=== PATIENT | male | born 1955 | race Caucasian/White ===

== ENCOUNTER 2016-03-06 20:40 | Emergency (ER) | payer OTHER, MEDICARE ==
[~2016-03-06] VITALS: Ht 157.5 cm; Wt 150.5 kg
[~2016-03-06 20:40] MED LIST: ALBUTEROL0.83 MG/ML IH; AMBIEN 10MG10 MG PO; BLOOD PRESSURE PILL; BROVANA15 MCG/2 M IH; BUMEX 1MG TA1 MG/TA1 PO; CALCIUM W/VITAM1 TAB PO; CARDI-OMEGA1000 MG PO; CELEBREX 200MG200 MG PO; CEPHALEXIN500 M1 PO; CLEOCIN HCL300 MG PO; COLACE 100100 MG/CAP PO; COMBIRESP IH; COMBIVENT INH14.7 GM IH; DESYREL 50MG50 MG PO; DOXYCYCLINE 10100 MG PO; DULCOLAX TAB5 MG PO; HYZAAR 25 MG-101 TAB PO; HYZAAR 50-12.1 UDTAB PO; INCRUSE EL62.5 MCG/A IH; IPRATROPIUM BROM3 M1 IH; K-TAB20 PO; KLOR-CON 1010 MEQ PO; KLOR-CON M2020 MEQ PO; KLOR-CON20 MEQ PO; LASIX 40MG TABL40 MG PO; LEVAQUIN 750MG750 M1 PO; LEVOXYL0.05 MG PO; LEVOXYL0.075 MG PO; LIPITOR 40MG TA40 MG PO; LUNESTA3 MG PO; METALAZONE PO; MILK OF MA400 MG/52 PO; MUCUS RELIEF200 MG PO; NITROSTAT0.4 MG/TAB SL; NORCO 325 MG-51 TAB PO; PERCOCET 325 MG1 TA2 PO; PLAVIX 75MG TAB75 MG PO; PREDNISONE10 MG PO; PREDNISONE20 MG PO; PULMICORT0.25 MG/2 IH; PULMICORT0.5 MG/2 M IH; ROXICODONE 55 MG/TAB PO; RT ALBUTER2.5 MG/0.5 IH; RT SPIRIVA18 MCG IH; STOOL SOFTENER100 M2 PO; SYNTHROID0.05 MG/TA PO; SYNTHROID0.075 MG/T PO; TENORMIN 2525 MG/TAB PO; TENORMIN 5050 MG/TAB PO; THEO-24 20200 MG/CAP PO; TOPROL XL 25MG25 MG PO; ULTRAM 50MG TAB50 MG PO; ZAROXOLYN5 MG PO; ZITHROMAX500 M2 PO; ZOCOR 40MG40 MG PO; ZOLOFT 50MG50 MG PO; ZYLOPRIM 100MG100 MG PO; ZYLOPRIM 300MG300 MG PO
[2016-03-06 20:41] VITALS: TEMP 98.4
[2016-03-06 21:57] LABS: BASO % 0.6 % (0.0-2.0); EOS # 0.4 (0.0-0.7); EOS % 5.4 % (0-4.0); GRAN # 4.9 (1.4-6.5); GRAN % 67.6 % (42.2-75.2); HEMATOCRIT 37.4 % (42.0-52.0); LYMPH # 1.4 (1.2-3.4); LYMPH % 18.7 % (20.0-51.0); MEAN CELL VOLUME 88 fl (80.0-100.0); MEAN CORPUSCULAR HEMOGLOBIN 28 pg (27.0-31.0); MEAN CORPUSCULAR HGB CONC 31 g/dl (33.0-37.0); MEAN PLATELET VOLUME 9.8 fl (7.4-10.4); MONO # 0.5 (0.1-0.6); MONO % 7.1 % (1.7-9.3); PLATELET COUNT 222 K/mm3 (130-400); RED BLOOD COUNT 4.23 M/mm3 (4.20-5.60); REDCELL DISTRIBUTION WIDTH-CV 14.7 % (11.5-14.5); WHITE BLOOD COUNT 7.2 K/mm3 (4.8-10.8)
[2016-03-06 21:59] LABS: HEMOGLOBIN 11.7 g/dl (13.5-18.0)
[2016-03-06 22:09] LABS: ADJUSTED CALCIUM 9.2 mg/dL (8.4-10.2); ALANINE AMINOTRANSFERASE 68 U/L (21-72); ALBUMIN 3.7 gm/dL (3.5-5.0); ALKALINE PHOSPHATASE 126 U/L (50-136); ANION GAP 9 mmol/L (7-16); BILIRUBIN,TOTAL 0.9 mg/dL (0.0-1.0); BLOOD UREA NITROGEN 16 mg/dL (9-20); CARBON DIOXIDE 35 mmol/L (22-30); CHLORIDE 99 mmol/L (98-107); CREATININE, serum 0.76 mg/dL (0.66-1.25); GLUCOSE 97 mg/dL (74-106); POTASSIUM 4.1 mmol/L (3.4-5.0); SODIUM 143 mmol/L (137-145); TOTAL PROTEIN 7.2 gm/dL (6.4-8.2)
[2016-03-06 22:20] LABS: B-TYPE NATRIURETIC PEPTIDE 639 pg/mL (0-125)
[2016-03-06 22:25] LABS: TROPONIN-I < 0.012 ng/mL (0.000-0.034)
[2016-03-06 22:33] LABS: PROTHROMBIN TIME 11.6 SECONDS (9.7-12.8)
[2016-03-06 23:14] VITALS: BP 184/87; PULSE 74
== END 2016-03-06 23:14 | disposition home or self-care (01) ==
LOC: COL.ER 20:40
PROVIDERS: Emergency Medicine
DX: J44.9 Chronic obstructive pulmonary disease, unspecified (principal); Z99.81 Dependence on supplemental oxygen; I25.10 Atherosclerotic heart disease of native coronary artery without angina pectoris; I11.0 Hypertensive heart disease with heart failure; I50.9 Heart failure, unspecified; E11.9 Type 2 diabetes mellitus without complications; Z95.0 Presence of cardiac pacemaker; E66.01 Morbid (severe) obesity due to excess calories; Z76.0 Encounter for issue of repeat prescription; Z68.44 Body mass index [BMI] 60.0-69.9, adult; Z79.02 Long term (current) use of antithrombotics/antiplatelets
CPT/HCPCS: J1940

== ENCOUNTER 2016-04-16 00:13 | Emergency (ER) | payer OTHER, MEDICARE ==
[~2016-04-16] VITALS: Ht 160 cm; Wt 150.5 kg
[2016-04-16 00:23] VITALS: TEMP 97.6
[2016-04-16] MEDS ORDERED: KLOR-CON M2020 MEQ PO (01:00)
[2016-04-16 01:01] LABS: BASO % 0.5 % (0.0-2.0); EOS # 0.4 (0.0-0.7); GRAN # 4.9 (1.4-6.5); GRAN % 66.7 % (42.2-75.2); HEMATOCRIT 40.3 % (42.0-52.0); HEMOGLOBIN 12.4 g/dl (13.5-18.0); LYMPH # 1.4 (1.2-3.4); LYMPH % 19.2 % (20.0-51.0); MEAN CELL VOLUME 89 fl (80.0-100.0); MEAN CORPUSCULAR HEMOGLOBIN 27 pg (27.0-31.0); MEAN CORPUSCULAR HGB CONC 31 g/dl (33.0-37.0); MEAN PLATELET VOLUME 9.9 fl (7.4-10.4); MONO # 0.6 (0.1-0.6); MONO % 7.9 % (1.7-9.3); PLATELET COUNT 242 K/mm3 (130-400); RED BLOOD COUNT 4.53 M/mm3 (4.20-5.60); REDCELL DISTRIBUTION WIDTH-CV 13.5 % (11.5-14.5); WHITE BLOOD COUNT 7.4 K/mm3 (4.8-10.8)
[2016-04-16 01:09] LABS: INFLUENZA B NEGATIVE
[2016-04-16 01:12] LABS: ADJUSTED CALCIUM 9.3 mg/dL (8.4-10.2); ALANINE AMINOTRANSFERASE 49 U/L (21-72); ALBUMIN 3.9 gm/dL (3.5-5.0); ALKALINE PHOSPHATASE 123 U/L (50-136); ANION GAP 12 mmol/L (7-16); BILIRUBIN,TOTAL 0.6 mg/dL (0.0-1.0); BLOOD UREA NITROGEN 27 mg/dL (9-20); CALCIUM 9.2 mg/dL (8.4-10.2); CARBON DIOXIDE 34 mmol/L (22-30); CHLORIDE 98 mmol/L (98-107); CREATININE, serum 0.99 mg/dL (0.66-1.25); GLUCOSE 108 mg/dL (74-106); MAGNESIUM 1.7 mg/dL (1.6-2.3); POTASSIUM 3.6 mmol/L (3.4-5.0); SODIUM 144 mmol/L (137-145); TOTAL PROTEIN 7.7 gm/dL (6.4-8.2)
[2016-04-16 01:23] LABS: B-TYPE NATRIURETIC PEPTIDE 145 pg/mL (0-125)
[2016-04-16 01:24] LABS: TROPONIN-I < 0.012 ng/mL (0.000-0.034)
[2016-04-16 01:48] LABS: THEOPHYLLINE < 1.0 ug/mL (10.0-20.0)
[2016-04-16] MEDS ORDERED: PREDNISONE20 MG PO (02:36)
[2016-04-16 02:44] VITALS: BP 154/85; PULSE 86
[2016-04-17] MEDS ORDERED: SYNTHROID0.075 MG/T PO (05:32)
[2016-04-17] MEDS ORDERED: TOPROL XL 25MG25 MG PO (05:34)
[2016-04-17] MEDS ORDERED: PREDNISONE20 MG PO (09:15)
[2016-04-17] MEDS ORDERED: INCRUSE EL62.5 MCG/A IH (09:19)
== END 2016-04-16 02:59 | disposition home or self-care (01) ==
LOC: COL.ER 00:13
PROVIDERS: Emergency Medicine
DX: J44.1 Chronic obstructive pulmonary disease with (acute) exacerbation (principal); T50.1X6A Underdosing of loop [high-ceiling] diuretics, initial encounter; Z91.128 Patient's intentional underdosing of medication regimen for other reason; Z99.81 Dependence on supplemental oxygen; E11.9 Type 2 diabetes mellitus without complications; I50.9 Heart failure, unspecified; I25.10 Atherosclerotic heart disease of native coronary artery without angina pectoris; Z79.02 Long term (current) use of antithrombotics/antiplatelets
CPT/HCPCS: J2930; J7512

== ENCOUNTER 2016-04-17 04:35 | Inpatient (IN) | payer OTHER, MEDICARE ==
[~2016-04-17] VITALS: Ht 160.1 cm; Wt 158.1 kg
[2016-04-17] VITALS (599 sets, daily range): BP systolic 135–157; BP diastolic 79–101; PULSE 89–117; TEMP 97.5–98.7; O2SAT 70–100
[2016-04-17 04:50] LABS: ARTERIAL BLD GAS O2 SATURATION 93.6 % (92-100); ARTERIAL BLD GAS TCO2 CT 40.1; ARTERIAL BLOOD GAS HCO3 36.8 meq/L (22-26); ARTERIAL BLOOD GAS PO2 90.7 mmHg (80-100); ARTERIAL BLOOD GAS PO2T 90.7 (80-100); OXYHEMOGLOBIN 92.8 %
[2016-04-17 04:51] LABS: ALLEN TEST YES; ALLENS TEST RESULT PASS; ARTERIAL BLOOD GAS PHT 7.16 C (7.35-7.45); ARTERIAL BLOOD GAS pH 7.16 (7.35-7.45); ATS? YES
[2016-04-17 05:04] LABS: BASO % 0.2 % (0.0-2.0); EOS % 0.1 % (0-4.0); GRAN # 10.6 (1.4-6.5); GRAN % 82.4 % (42.2-75.2); HEMATOCRIT 42.2 % (42.0-52.0); LYMPH # 1.2 (1.2-3.4); LYMPH % 9.2 % (20.0-51.0); MEAN CELL VOLUME 89 fl (80.0-100.0); MEAN CORPUSCULAR HEMOGLOBIN 27 pg (27.0-31.0); MEAN CORPUSCULAR HGB CONC 31 g/dl (33.0-37.0); MEAN PLATELET VOLUME 9.7 fl (7.4-10.4); MONO % 7.5 % (1.7-9.3); PLATELET COUNT 267 K/mm3 (130-400); RED BLOOD COUNT 4.75 M/mm3 (4.20-5.60); REDCELL DISTRIBUTION WIDTH-CV 13.6 % (11.5-14.5); WHITE BLOOD COUNT 12.9 K/mm3 (4.8-10.8)
[2016-04-17 05:07] LABS: INR 1.1 (0.8-3.0); PROTHROMBIN TIME 11.9 SECONDS (9.7-12.8)
[2016-04-17 05:14] LABS: ADJUSTED CALCIUM 8.9 mg/dL (8.4-10.2); BILIRUBIN,TOTAL 0.6 mg/dL (0.0-1.0); CALCIUM 8.9 mg/dL (8.4-10.2); CREATININE, serum 0.75 mg/dL (0.66-1.25); POTASSIUM 3.8 mmol/L (3.4-5.0); TOTAL PROTEIN 7.8 gm/dL (6.4-8.2)
[2016-04-17 05:27] LABS: TROPONIN-I 0.063 ng/mL (0.000-0.034)
[2016-04-17] MEDS ORDERED: SYNTHROID0.075 MG/T PO (05:32)
[2016-04-17] MEDS ORDERED: TOPROL XL 25MG25 MG PO (05:34)
[2016-04-17 05:36] LABS: ARTERIAL BLD GAS O2 SATURATION 96.9 % (92-100); ARTERIAL BLD GAS TCO2 CT 38.6; ARTERIAL BLOOD GAS BASE EXCESS 6.2 (-2-2); ARTERIAL BLOOD GAS HCO3 36.1 meq/L (22-26); ARTERIAL BLOOD GAS pH 7.24 (7.35-7.45)
[2016-04-17 05:38] LABS: ALLEN TEST YES; ALLENS TEST RESULT PASS; ATS? YES
[2016-04-17] MEDS ORDERED: PREDNISONE20 MG PO (09:15)
[2016-04-17] MEDS ORDERED: INCRUSE EL62.5 MCG/A IH (09:19)
[2016-04-17 14:56] LABS: ARTERIAL BLD GAS O2 SATURATION 92.4 % (92-100); ARTERIAL BLD GAS TCO2 CT 39.4; ARTERIAL BLOOD GAS BASE EXCESS 8.6 (-2-2); ARTERIAL BLOOD GAS HCO3 37.2 meq/L (22-26); ARTERIAL BLOOD GAS PHT 7.34 C (7.35-7.45); ARTERIAL BLOOD GAS PO2 65.7 mmHg (80-100); ARTERIAL BLOOD GAS PO2T 65.7 (80-100); ARTERIAL BLOOD GAS pH 7.34 (7.35-7.45); OXYHEMOGLOBIN 91.6 %
[2016-04-17 14:57] LABS: ALLEN TEST NO; ATS? YES
[2016-04-18] VITALS (601 sets, daily range): BP systolic 114–152; BP diastolic 32–81; PULSE 64–83; TEMP 97.1–98.8; O2SAT 88–100
[2016-04-18 05:16] LABS: ARTERIAL BLD GAS O2 SATURATION 93.1 % (92-100); ARTERIAL BLD GAS TCO2 CT 38.4; ARTERIAL BLOOD GAS HCO3 36.3 meq/L (22-26); ARTERIAL BLOOD GAS PHT 7.34 C (7.35-7.45); ARTERIAL BLOOD GAS PO2 70.3 mmHg (80-100); ARTERIAL BLOOD GAS PO2T 70.3 (80-100); ARTERIAL BLOOD GAS pH 7.34 (7.35-7.45); OXYHEMOGLOBIN 92.5 %
[2016-04-18 05:19] LABS: ALLEN TEST NO; ATS? YES
[2016-04-18 06:07] LABS: HEMOGLOBIN 12.4 g/dl (13.5-18.0); MEAN CELL VOLUME 89 fl (80.0-100.0); MEAN CORPUSCULAR HEMOGLOBIN 28 pg (27.0-31.0); MEAN CORPUSCULAR HGB CONC 31 g/dl (33.0-37.0); MEAN PLATELET VOLUME 9.7 fl (7.4-10.4); PLATELET COUNT 249 K/mm3 (130-400); RED BLOOD COUNT 4.49 M/mm3 (4.20-5.60); REDCELL DISTRIBUTION WIDTH-CV 13.4 % (11.5-14.5); WHITE BLOOD COUNT 10.6 K/mm3 (4.8-10.8)
[2016-04-18 06:13] LABS: ADD PATHOLOGY DIFF REVIEW NO
[2016-04-18 06:16] LABS: ADJUSTED CALCIUM 9.2 mg/dL (8.4-10.2); ALBUMIN 3.7 gm/dL (3.5-5.0); BILIRUBIN,TOTAL 0.4 mg/dL (0.0-1.0); CREATININE, serum 0.71 mg/dL (0.66-1.25); POTASSIUM 4.4 mmol/L (3.4-5.0); TOTAL PROTEIN 7.3 gm/dL (6.4-8.2)
[2016-04-18 07:07] LABS: BAND 6 % (0-10); NEUTROPHILS 84 % (42.0-75.2); PLATELET ESTIMATE NORMAL (NORMAL); TOTAL CELLS COUNTED 100
[2016-04-19] VITALS (12 sets, daily range): BP systolic 114–184; BP diastolic 61–86; PULSE 74–133; TEMP 97.3–98
[2016-04-19 05:31] LABS: ARTERIAL BLD GAS O2 SATURATION 95.5 % (92-100); ARTERIAL BLD GAS TCO2 CT 38.2; ARTERIAL BLOOD GAS BASE EXCESS 9.2 (-2-2); ARTERIAL BLOOD GAS HCO3 36.3 meq/L (22-26); ARTERIAL BLOOD GAS PHT 7.39 C (7.35-7.45); ARTERIAL BLOOD GAS PO2 80.6 mmHg (80-100); ARTERIAL BLOOD GAS PO2T 80.6 (80-100); ARTERIAL BLOOD GAS pH 7.39 (7.35-7.45); OXYHEMOGLOBIN 94.8 %
[2016-04-19 05:32] LABS: ALLEN TEST YES; ALLENS TEST RESULT PASS; ATS? YES
[2016-04-19 07:50] LABS: BASO % 0.2 % (0.0-2.0); GRAN # 10.5 (1.4-6.5); GRAN % 82.3 % (42.2-75.2); HEMATOCRIT 38.3 % (42.0-52.0); LYMPH # 1.5 (1.2-3.4); LYMPH % 11.5 % (20.0-51.0); MEAN CELL VOLUME 88 fl (80.0-100.0); MEAN CORPUSCULAR HEMOGLOBIN 28 pg (27.0-31.0); MEAN CORPUSCULAR HGB CONC 31 g/dl (33.0-37.0); MONO # 0.7 (0.1-0.6); MONO % 5.4 % (1.7-9.3); PLATELET COUNT 289 K/mm3 (130-400); RED BLOOD COUNT 4.37 M/mm3 (4.20-5.60); REDCELL DISTRIBUTION WIDTH-CV 13.4 % (11.5-14.5); WHITE BLOOD COUNT 12.8 K/mm3 (4.8-10.8)
[2016-04-19 07:59] LABS: ALBUMIN 3.5 gm/dL (3.5-5.0)
[2016-04-19 08:23] LABS: BILIRUBIN,DIRECT 0.4 mg/dL (0.0-0.4); BILIRUBIN,TOTAL 0.5 mg/dL (0.0-1.0)
[2016-04-19 09:16] LABS: CREATININE, serum 0.86 mg/dL (0.66-1.25); MAGNESIUM 2.2 mg/dL (1.6-2.3); PHOSPHOROUS 4.3 mg/dL (2.5-4.5); POTASSIUM 3.7 mmol/L (3.4-5.0)
[2016-04-19] MEDS ORDERED: PREDNISONE20 MG PO (12:27)
[2016-04-19] MEDS ORDERED: LEVAQUIN 750MG750 M1 PO (12:28)
[2016-04-19] MEDS ORDERED: PREDNISONE10 MG PO ×2 (12:28)
== END 2016-04-19 18:03 | disposition home or self-care (01) | DRG 189 ==
LOC: COL.ER 04:35 → MEDICAL 05:45 → ICU 05:45 → MEDICAL 04-18 11:47
PROVIDERS: Emergency Medicine; Family Medicine; Internal Medicine Pulmonary Disease
DX: J96.22 Acute and chronic respiratory failure with hypercapnia (principal); I21.4 Non-ST elevation (NSTEMI) myocardial infarction; J44.1 Chronic obstructive pulmonary disease with (acute) exacerbation; I50.30 Unspecified diastolic (congestive) heart failure; Z68.44 Body mass index [BMI] 60.0-69.9, adult; E78.5 Hyperlipidemia, unspecified; Z66 Do not resuscitate; I11.0 Hypertensive heart disease with heart failure; G47.33 Obstructive sleep apnea (adult) (pediatric); E66.01 Morbid (severe) obesity due to excess calories; Z88.0 Allergy status to penicillin; Z87.891 Personal history of nicotine dependence
CPT/HCPCS: 99223-AI; 99233-AI; 99239; A9502; J1250; J1956; J2930; J7512

== ENCOUNTER 2016-05-25 09:43 | Emergency (ER) | payer OTHER, MEDICARE ==
[~2016-05-25] VITALS: Ht 157.5 cm; Wt 154.5 kg
[2016-05-25 10:23] LABS: BASO % 0.4 % (0.0-2.0); EOS # 0.2 (0.0-0.7); EOS % 2.3 % (0-4.0); GRAN # 6.4 (1.4-6.5); GRAN % 77.5 % (42.2-75.2); HEMOGLOBIN 12.8 g/dl (13.5-18.0); LYMPH # 1.2 (1.2-3.4); LYMPH % 13.8 % (20.0-51.0); MEAN CELL VOLUME 88 fl (80.0-100.0); MEAN CORPUSCULAR HEMOGLOBIN 28 pg (27.0-31.0); MEAN CORPUSCULAR HGB CONC 31 g/dl (33.0-37.0); MEAN PLATELET VOLUME 9.9 fl (7.4-10.4); MONO # 0.4 (0.1-0.6); MONO % 5.3 % (1.7-9.3); PLATELET COUNT 271 K/mm3 (130-400); RED BLOOD COUNT 4.64 M/mm3 (4.20-5.60); REDCELL DISTRIBUTION WIDTH-CV 13.7 % (11.5-14.5); WHITE BLOOD COUNT 8.3 K/mm3 (4.8-10.8)
[2016-05-25 10:25] LABS: ARTERIAL BLD GAS TCO2 CT 35.5; ARTERIAL BLOOD GAS BASE EXCESS 4.9 (-2-2); ARTERIAL BLOOD GAS HCO3 33.4 meq/L (22-26); ARTERIAL BLOOD GAS PO2 93.3 mmHg (80-100); ARTERIAL BLOOD GAS PO2T 93.3 (80-100); OXYHEMOGLOBIN 95.2 %
[2016-05-25 10:27] LABS: ATS? YES
[2016-05-25 10:28] LABS: INR 1.1 (0.8-3.0); PROTHROMBIN TIME 12.2 SECONDS (9.7-12.8)
[2016-05-25 10:31] LABS: PARTIAL THROMBOPLASTIN TIME 38.5 SECONDS (26.0-37.0)
[2016-05-25 10:34] LABS: ALANINE AMINOTRANSFERASE 33 U/L (21-72); ALBUMIN 3.6 gm/dL (3.5-5.0); ALKALINE PHOSPHATASE 141 U/L (50-136); ANION GAP 9 mmol/L (7-16); BILIRUBIN,TOTAL 0.7 mg/dL (0.0-1.0); BLOOD UREA NITROGEN 13 mg/dL (9-20); CALCIUM 9.7 mg/dL (8.4-10.2); CARBON DIOXIDE 37 mmol/L (22-30); CHLORIDE 99 mmol/L (98-107); CREATININE, serum 0.76 mg/dL (0.66-1.25); GLUCOSE 126 mg/dL (74-106); SODIUM 145 mmol/L (137-145); TOTAL PROTEIN 7.4 gm/dL (6.4-8.2)
[2016-05-25 10:45] LABS: B-TYPE NATRIURETIC PEPTIDE 210 pg/mL (0-125)
[2016-05-25 10:50] LABS: TROPONIN-I < 0.012 ng/mL (0.000-0.034)
[2016-05-25] MEDS ORDERED: K-DUR20 MEQ PO (11:24)
[2016-05-25] MEDS ORDERED: PREDNISONE20 MG PO (13:21)
[2016-05-25] MEDS ORDERED: LEVAQUIN 5500 MG/TA1 PO (13:21)
[2016-05-25 14:16] VITALS: BP 140/75; PULSE 80; TEMP 98.2
== END 2016-05-25 14:08 | disposition home or self-care (01) ==
LOC: COL.ER 09:43
PROVIDERS: Emergency Medicine
DX: J44.1 Chronic obstructive pulmonary disease with (acute) exacerbation (principal); Z91.14 Patient's other noncompliance with medication regimen; I10 Essential (primary) hypertension; G47.33 Obstructive sleep apnea (adult) (pediatric); Z95.5 Presence of coronary angioplasty implant and graft; I25.10 Atherosclerotic heart disease of native coronary artery without angina pectoris; Z87.891 Personal history of nicotine dependence; Z95.0 Presence of cardiac pacemaker; Z66 Do not resuscitate; Z88.0 Allergy status to penicillin
CPT/HCPCS: J2930

== ENCOUNTER → 2016-06-26 | Outpatient (CLI) | payer OTHER, MEDICARE ==
[~2016-06-26] MED LIST changes: +BACTROBAN 22GM22 GM TP; +K-DUR20 MEQ PO; +LEVAQUIN 5500 MG/TA1 PO; +LIPITOR 80MG80 MG PO; +THEO-24400 MG PO
== END ==
LOC: COL.PUL 09:40
DX: R06.02 Shortness of breath (principal)

== ENCOUNTER 2016-07-27 01:52 | Inpatient (IN) | payer OTHER, MEDICARE ==
[2016-07-27] VITALS (1018 sets, daily range): BP systolic 112–134; BP diastolic 52–90; PULSE 83–97; TEMP 97.3–98.3; O2SAT 84–100
[~2016-07-27] VITALS: Ht 157.5 cm; Wt 133.9 kg
[~2016-07-27 01:52] MED LIST changes: -BACTROBAN 22GM22 GM TP; -LIPITOR 80MG80 MG PO; -THEO-24400 MG PO
[2016-07-27 02:09] LABS: ARTERIAL BLD GAS O2 SATURATION 99.2 % (92-100); ARTERIAL BLD GAS TCO2 CT 36.1; ARTERIAL BLOOD GAS HCO3 33.7 meq/L (22-26); ARTERIAL BLOOD GAS PHT 7.25 C (7.35-7.45); ARTERIAL BLOOD GAS pH 7.25 (7.35-7.45); OXYHEMOGLOBIN 98.4 %
[2016-07-27 02:14] LABS: ALLEN TEST YES; ALLENS TEST RESULT PASS; ARTERIAL BLOOD GAS PO2 491.5 mmHg (80-100); ARTERIAL BLOOD GAS PO2T 491.5 (80-100); ATS? YES
[2016-07-27 02:23] LABS: BASO % 0.4 % (0.0-2.0); EOS # 0.4 (0.0-0.7); EOS % 3.8 % (0-4.0); GRAN # 7.9 (1.4-6.5); GRAN % 76.6 % (42.2-75.2); HEMATOCRIT 37.1 % (42.0-52.0); LYMPH # 1.5 (1.2-3.4); LYMPH % 14.2 % (20.0-51.0); MEAN CELL VOLUME 86 fl (80.0-100.0); MEAN CORPUSCULAR HEMOGLOBIN 27 pg (27.0-31.0); MEAN CORPUSCULAR HGB CONC 32 g/dl (33.0-37.0); MEAN PLATELET VOLUME 9.9 fl (7.4-10.4); MONO # 0.4 (0.1-0.6); MONO % 4.3 % (1.7-9.3); PLATELET COUNT 200 K/mm3 (130-400); RED BLOOD COUNT 4.32 M/mm3 (4.20-5.60); REDCELL DISTRIBUTION WIDTH-CV 14.2 % (11.5-14.5); WHITE BLOOD COUNT 10.3 K/mm3 (4.8-10.8)
[2016-07-27 02:24] LABS: HEMOGLOBIN 11.8 g/dl (13.5-18.0)
[2016-07-27 02:28] LABS: ADJUSTED CALCIUM 8.8 mg/dL (8.4-10.2); ALBUMIN 3.4 gm/dL (3.5-5.0); BILIRUBIN,TOTAL 0.5 mg/dL (0.0-1.0); CALCIUM 8.3 mg/dL (8.4-10.2); CREATININE, serum 0.82 mg/dL (0.66-1.25); POTASSIUM 4.1 mmol/L (3.4-5.0); TOTAL PROTEIN 7.2 gm/dL (6.4-8.2)
[2016-07-27 02:53] LABS: TROPONIN-I 0.021 ng/mL (0.000-0.034)
[2016-07-27] MEDS ORDERED: ZAROXOLYN5 MG PO (04:00)
[2016-07-27] MEDS ORDERED: THEO-24400 MG PO (04:01)
[2016-07-27] MEDS ORDERED: LIPITOR 80MG80 MG PO (04:05)
[2016-07-27] MEDS ORDERED: DESYREL 50MG50 MG PO (04:05)
[2016-07-27 04:49] LABS: ALLEN TEST YES; ALLENS TEST RESULT PASS; ARTERIAL BLD GAS O2 SATURATION 97.2 % (92-100); ARTERIAL BLOOD GAS BASE EXCESS 3.7 (-2-2); ARTERIAL BLOOD GAS HCO3 31.1 meq/L (22-26); ARTERIAL BLOOD GAS PO2 115.9 mmHg (80-100); ARTERIAL BLOOD GAS pH 7.32 (7.35-7.45); ATS? YES
[2016-07-27] MEDS ORDERED: BACTROBAN 22GM22 GM TP (05:01)
[2016-07-27 10:18] LABS: ARTERIAL BLD GAS O2 SATURATION 93.5 % (92-100); ARTERIAL BLD GAS TCO2 CT 30.3; ARTERIAL BLOOD GAS BASE EXCESS 2.2 (-2-2); ARTERIAL BLOOD GAS HCO3 28.7 meq/L (22-26); ARTERIAL BLOOD GAS PO2 72.1 mmHg (80-100); ARTERIAL BLOOD GAS pH 7.35 (7.35-7.45); OXYHEMOGLOBIN 92.8 %
[2016-07-27 10:19] LABS: ATS? YES
[2016-07-27 10:20] LABS: ABG VENTILATOR TIDAL VOLUME 354 mL; ALLEN TEST NO
[2016-07-28] VITALS (690 sets, daily range): BP systolic 104–150; BP diastolic 54–82; PULSE 71–90; TEMP 97.5–98.5; O2SAT 80–97
[2016-07-28 07:59] LABS: CALCIUM 8.9 mg/dL (8.4-10.2); CREATININE, serum 0.75 mg/dL (0.66-1.25); MAGNESIUM 1.7 mg/dL (1.6-2.3); POTASSIUM 3.5 mmol/L (3.4-5.0)
[2016-07-28 08:17] LABS: TROPONIN-I 0.118 ng/mL (0.000-0.034)
[2016-07-29 05:50] VITALS: BP 128/65; PULSE 59; TEMP 97.3
[2016-07-29 08:36] VITALS: BP 173/82; PULSE 66; TEMP 98
[2016-07-29] MEDS ORDERED: PREDNISONE20 MG PO (11:27)
[2016-07-29] MEDS ORDERED: LEVAQUIN 750MG750 M1 PO (11:27)
== END 2016-07-29 14:00 | disposition home or self-care (01) | DRG 189 ==
LOC: COL.ER 01:52 → ICU 03:36 → IMCU 03:36 → MEDICAL 03:36 → IMCU 20:56 → MEDICAL 07-28 14:46
PROVIDERS: Emergency Medicine; Family Medicine; Internal Medicine; Nurse Practitioner Family
DX: J96.22 Acute and chronic respiratory failure with hypercapnia (principal); J44.1 Chronic obstructive pulmonary disease with (acute) exacerbation; I50.30 Unspecified diastolic (congestive) heart failure; Z68.44 Body mass index [BMI] 60.0-69.9, adult; I11.0 Hypertensive heart disease with heart failure; E66.01 Morbid (severe) obesity due to excess calories; E78.5 Hyperlipidemia, unspecified; E03.9 Hypothyroidism, unspecified; I25.10 Atherosclerotic heart disease of native coronary artery without angina pectoris; Z66 Do not resuscitate; I25.2 Old myocardial infarction; Z95.0 Presence of cardiac pacemaker; Z95.5 Presence of coronary angioplasty implant and graft; Z87.891 Personal history of nicotine dependence; Z88.0 Allergy status to penicillin
CPT/HCPCS: 99223-AI; 99232-AI; 99239; J1650; J1956; J2930; J7512

== ENCOUNTER → 2016-08-13 | Emergency (ER) | payer OTHER, MEDICARE ==
[~2016-08-13] VITALS: Ht 175.3 cm; Wt 170.5 kg
[~2016-08-13] MED LIST changes: +BACTROBAN 22GM22 GM TP; +LIPITOR 80MG80 MG PO; +THEO-24400 MG PO
[2016-08-13 16:53] VITALS: BP 45/31; PULSE 60; TEMP 90.7
== END | disposition expired ==
LOC: COL.ER 16:47
DX: I46.9 Cardiac arrest, cause unspecified (principal); I11.0 Hypertensive heart disease with heart failure; I50.9 Heart failure, unspecified; J44.9 Chronic obstructive pulmonary disease, unspecified; Z95.0 Presence of cardiac pacemaker; E03.9 Hypothyroidism, unspecified; I25.10 Atherosclerotic heart disease of native coronary artery without angina pectoris; G47.33 Obstructive sleep apnea (adult) (pediatric)